=== PATIENT | male | born 1960 | race Caucasian/White ===

== ENCOUNTER 2023-12-29 11:50 | Emergency (ER) | payer MEDICAID ==
[~2023-12-29] VITALS: Ht 182.9 cm; Wt 88.9 kg
[2023-12-29] MEDS ORDERED: LIDOCAINE MPF 1%-EPI 1:200,000 30 ML VIAL IJ ONE (12:11)
[2023-12-29 13:20] LABS: ALBUMIN 3.7 g/dL (3.4-5.0); BILIRUBIN,TOTAL 0.4 mg/dL (0.2-1.0); CALCIUM, SERUM 9.2 mg/dL (8.5-10.1); POTASSIUM 5.3 mmol/L (3.5-5.1); TOTAL PROTEIN, SERUM 7.6 g/dL (6.4-8.2)
[2023-12-29 13:34] LABS: BASOPHILS % (AUTO) 0.4 % (0.0-2.0); EOSINOPHILS # (AUTO) 0.2 K/uL (0.0-0.7); EOSINOPHILS % (AUTO) 2.4 % (0.0-6.0); HEMATOCRIT 41 % (39-51); HEMOGLOBIN 13.8 g/dL (13.5-17.5); LYMPHOCYTES # (AUTO) 1.5 K/uL (0.8-4.8); LYMPHOCYTES % (AUTO) 14.7 % (20.0-44.0); MEAN CORPUSCULAR HEMOGLOBIN 30 PG (26.0-33.0); MEAN CORPUSCULAR HGB CONC 33 g/dl (31.0-36.0); MEAN CORPUSCULAR VOLUME 91 fL (80-96); MONOCYTES # (AUTO) 0.5 K/uL (0.1-1.30); MONOCYTES % (AUTO) 5.4 % (2.0-12.0); NEUTROPHILS # (AUTO) 7.8 K/uL (1.8-8.9); NEUTROPHILS % (AUTO) 77.1 % (43.0-81.0); PLATELET COUNT (AUTO) 229 K/uL (150-450); RED BLOOD CELL COUNT(AUTO) 4.52 MIL/uL (4.5-6.0); RED CELL DISTRIBUTION WIDTH 13.8 % (11.5-15.0); WHITE BLOOD COUNT (AUTO) 10.1 K/uL (4.3-11.0)
[2023-12-29] MEDS: IV NS 0.9% 1,000 ML BAG IV ONE (14:00)
[2023-12-29] MEDS ORDERED: TDAP [DIPH/PERTUSSIS/TET] 0.5 ML VIAL IM ONE (14:06)
[2023-12-29] MEDS: TDAP [DIPH/PERTUSSIS/TET] 0.5 ML VIAL IM ONE (14:13)
[2023-12-29] MEDS: LEVETIRACETAM (500MG) 500 MG in IV NS 0.9% 100 ML IV SCH (14:35)
[2023-12-29 17:07] VITALS: BP 125/88; TEMP 98.3; O2SAT 98
== END 2023-12-29 17:00 ==
LOC: ER 11:52
DX: S09.8XXA Other specified injuries of head, initial encounter (principal); S01.81XA Laceration without foreign body of other part of head, initial encounter; G40.909 Epilepsy, unspecified, not intractable, without status epilepticus; G62.9 Polyneuropathy, unspecified; I10 Essential (primary) hypertension; M19.90 Unspecified osteoarthritis, unspecified site; M81.0 Age-related osteoporosis without current pathological fracture; F20.9 Schizophrenia, unspecified; F32.A Depression, unspecified; E78.5 Hyperlipidemia, unspecified; H40.9 Unspecified glaucoma; Z86.79 Personal history of other diseases of the circulatory system; Z87.19 Personal history of other diseases of the digestive system; Z87.438 Personal history of other diseases of male genital organs; W18.39XA Other fall on same level, initial encounter; Y93.89 Activity, other specified; Y92.89 Other specified places as the place of occurrence of the external cause; Y99.8 Other external cause status
CPT/HCPCS: 12013; 36415; 70450; 72125; 80053; 84484; 85025; 90471; 90715; 93005; 96361; 96365; 99285; A4223; A6403; J1953; J3490; J7030

== ENCOUNTER 2024-11-13 13:48 | Inpatient (IN) | payer MEDICARE, OTHER ==
[~2024-11-13] VITALS: Ht 182.9 cm; Wt 87.5 kg
[2024-11-13 14:22] LABS: PLATELET COUNT (AUTO) 242 K/uL (150-450); RED BLOOD CELL COUNT(AUTO) 4.29 MIL/uL (4.5-6.0); RED CELL DISTRIBUTION WIDTH 16.4 % (11.5-15.0); WHITE BLOOD COUNT (AUTO) 7.3 K/uL (4.3-11.0)
[2024-11-13 14:35] LABS: CALCIUM, SERUM 9.2 mg/dL (8.5-10.1); CREATININE 1.0 mg/dL (0.6-1.3); SODIUM SERUM 140.0 mmol/L (136-145); UREA NITROGEN, BLOOD 23.0 mg/dL (7-18)
[2024-11-13 14:40] LABS: ASPARTATE AMINOTRANSFERASE 18.0 U/L (15-37); TOTAL PROTEIN, SERUM 7.1 g/dL (6.4-8.2)
[2024-11-13] MEDS ORDERED: ACETAMINOPHEN ES 500 MG TABLET ONE (15:05)
[2024-11-13] MEDS: ACETAMINOPHEN 325 MG TABLET PO ONE (15:10)
[2024-11-13 18:38] LABS: APPEARANCE,URINE SLIGHTLY CLOUDY (CLEAR); BLOOD, URINE NEGATIVE Ery/uL (NEGATIVE); LEUKOCYTE ESTERASE ,URINE 1+ (NEGATIVE); NITRITE, URINE POSITIVE (NEGATIVE); UGLUCOSE NEGATIVE (NEGATIVE)
[2024-11-13 18:53] LABS: ADD URINE CULTURE YES; SQUAMOUS EPITHELIAL CELL,UR Few /HPF (None Seen)
[2024-11-13] MEDS ORDERED: CEFTRIAXONE 1GM BAG (ER ONLY) 50 ML IV ONE (19:00)
[2024-11-13] MEDS ORDERED: LEVOFLOXACIN (250MG) 250 MG TABLET ONE (19:29)
[2024-11-13] MEDS: LEVOFLOXACIN (250MG) 250 MG TABLET PO ONE (19:35)
[2024-11-13] MEDS ORDERED: SIMV10TA98 PO (20:48)
[2024-11-13] MEDS ORDERED: GABA600T12 PO (20:48)
[2024-11-13] MEDS ORDERED: TRAZ-182 PO (20:48)
[2024-11-13] MEDS ORDERED: METF-440 PO (20:48)
[2024-11-13] MEDS ORDERED: PROP40TA7 PO (20:48)
[2024-11-13] MEDS ORDERED: LIDO1ADH82 TP (20:48)
[2024-11-13] MEDS ORDERED: POLY119P3 PO (20:48)
[2024-11-13] MEDS ORDERED: LEVE250T2 PO (20:48)
[2024-11-13] MEDS ORDERED: TIMO5DRO35 LEFTEYE (20:48)
[2024-11-13] MEDS ORDERED: LATA7.5D EACHEYE (20:48)
[2024-11-13] MEDS ORDERED: TIZA-180 PO (20:48)
[2024-11-13] MEDS ORDERED: SENN8.6T19 PO (20:48)
[2024-11-13] MEDS ORDERED: OLAN5TAB3 PO (20:48)
[2024-11-13] MEDS ORDERED: MAG HYDROX/AL HYDROX/SIMETH 30 ML UDC PO PRN (21:00)
[2024-11-13] MEDS ORDERED: Z GUARD REMEDY 4 OZ OINT TP PRN (21:00)
[2024-11-13] MEDS ORDERED: ONDANSETRON HCL/PF 4 MG/2 ML VIAL IVP PRN (21:00)
[2024-11-13] MEDS ORDERED: MAGNESIUM HYDROXIDE 30 ML UDC PO PRN (21:00)
[2024-11-13] MEDS: IV NS 0.9% 1,000 ML IV SCH (21:30)
[2024-11-13] MEDS: ENOXAPARIN SODIUM 40 MG/0.4 ML DISP.SYRIN SQ SCH (21:35)
[2024-11-13] MEDS: ACETAMINOPHEN 325 MG TABLET PO PRN (21:50)
[2024-11-13 22:00] VITALS: BP 139/104; TEMP 97.9; O2SAT 95
[2024-11-14 01:07] VITALS: BP 139/104; TEMP 97.9; O2SAT 95
[2024-11-14 07:30] VITALS: BP 117/91; TEMP 98.1; O2SAT 96
[2024-11-14 08:00] LABS: PLATELET COUNT (AUTO) 233 K/uL (150-450); RED BLOOD CELL COUNT(AUTO) 4.39 MIL/uL (4.5-6.0); RED CELL DISTRIBUTION WIDTH 16.7 % (11.5-15.0); WHITE BLOOD COUNT (AUTO) 7.4 K/uL (4.3-11.0)
[2024-11-14] MEDS: LIDOCAINE 5% (PATCH) 1 EA PATCH TP SCH (08:16)
[2024-11-14] MEDS: GABAPENTIN 300 MG CAPSULE PO SCH (08:18)
[2024-11-14] MEDS: SENNOSIDES 8.6 MG TABLET PO SCH (08:18)
[2024-11-14] MEDS: LEVETIRACETAM SOL (5 ML) 100 MG/ML UDC PO SCH (08:18)
[2024-11-14] MEDS: OLANZAPINE 5 MG TABLET PO SCH (08:19)
[2024-11-14] MEDS: METFORMIN 500 MG TABLET PO SCH (08:19)
[2024-11-14] MEDS: TIZANIDINE HCL 4 MG TABLET PO SCH (08:19)
[2024-11-14] MEDS: PROPRANOLOL HCL 40 MG TABLET PO SCH (08:19)
[2024-11-14] MEDS: PANTOPRAZOLE 40 MG TABLET.DR PO SCH (08:19)
[2024-11-14] MEDS: TIMOLOL 0.5% SOLN OPHTH 5 ML BOTTLE EACHEYE SCH (08:24)
[2024-11-14 09:22] LABS: CALCIUM, SERUM 8.9 mg/dL (8.5-10.1); CREATININE 0.9 mg/dL (0.6-1.3); PHOSPHORUS 2.9 mg/dL (2.5-4.9); SODIUM SERUM 142.0 mmol/L (136-145); UREA NITROGEN, BLOOD 19.0 mg/dL (7-18)
[2024-11-14] MEDS ORDERED: PIPERACILLIN /TAZOBACTAM 3.375 G in IV D5W 50 ML IV SCH (12:00)
[2024-11-14] MEDS: NITROFURANTOIN/MONOHYDRATE MACROCRYSTALS 100 MG CAPSULE PO SCH (13:17)
[2024-11-14] MEDS: IV NS 0.9% 1,000 ML IV PRN (13:47)
[2024-11-14 16:00] VITALS: BP 135/98; TEMP 98.4; O2SAT 96
[2024-11-14] MEDS: LATANOPROST EYE DROP 0.005% 2.5 ML BOTTLE EACHEYE SCH (17:30)
[2024-11-14] MEDS: SIMVASTATIN 10 MG TABLET PO SCH (17:39)
[2024-11-14] MEDS: TRAZODONE 50 MG TABLET PO SCH (17:39)
[2024-11-14 20:00] VITALS: BP 136/92; TEMP 98.6; O2SAT 92
[2024-11-15 06:45] LABS: PLATELET COUNT (AUTO) 241 K/uL (150-450); RED BLOOD CELL COUNT(AUTO) 4.52 MIL/uL (4.5-6.0); RED CELL DISTRIBUTION WIDTH 16.6 % (11.5-15.0); WHITE BLOOD COUNT (AUTO) 7.3 K/uL (4.3-11.0)
[2024-11-15 07:14] LABS: CALCIUM, SERUM 8.9 mg/dL (8.5-10.1); CREATININE 0.9 mg/dL (0.6-1.3); SODIUM SERUM 140.0 mmol/L (136-145); TOTAL PROTEIN, SERUM 7.5 g/dL (6.4-8.2); UREA NITROGEN, BLOOD 23.0 mg/dL (7-18)
[2024-11-15 07:27] LABS: ASPARTATE AMINOTRANSFERASE 19.0 U/L (15-37); PHOSPHORUS 2.4 mg/dL (2.5-4.9)
[2024-11-15 07:30] VITALS: BP 160/99; TEMP 98.4; O2SAT 97
[2024-11-15] MEDS ORDERED: NITROFURANTOIN/MONOHYDRATE MACROCRYSTALS 100 MG CAPSULE PO SCH (09:00)
[2024-11-15 16:00] VITALS: BP 127/84; TEMP 97.9; O2SAT 95
[2024-11-15] MEDS: K PHOS NEUTRAL 250 MG TABLET PO ONE (16:35)
[2024-11-15] MEDS: HYDROCODONE/APAP 5/325MG TABLET PO PRN (16:35)
[2024-11-15 20:00] VITALS: BP 108/71; TEMP 97.5; O2SAT 94
[2024-11-16 07:19] LABS: PLATELET COUNT (AUTO) 206 K/uL (150-450); RED BLOOD CELL COUNT(AUTO) 4.04 MIL/uL (4.5-6.0); RED CELL DISTRIBUTION WIDTH 16.3 % (11.5-15.0); WHITE BLOOD COUNT (AUTO) 7.3 K/uL (4.3-11.0)
[2024-11-16 07:35] LABS: ASPARTATE AMINOTRANSFERASE 17.0 U/L (15-37); CALCIUM, SERUM 8.1 mg/dL (8.5-10.1); CREATININE 0.9 mg/dL (0.6-1.3); PHOSPHORUS 2.9 mg/dL (2.5-4.9); SODIUM SERUM 142.0 mmol/L (136-145); TOTAL PROTEIN, SERUM 6.7 g/dL (6.4-8.2); UREA NITROGEN, BLOOD 19.0 mg/dL (7-18)
[2024-11-16 08:00] VITALS: BP 134/82; TEMP 98.4; O2SAT 96
[2024-11-16 08:56] VITALS: BP 134/82
[2024-11-16] MEDS: POTASSIUM CHLORIDE 20 MEQ TAB.PRT.SR PO SCH (12:04)
== END 2024-11-16 14:50 | DRG 699 ==
LOC: ER 13:56 → MED 20:37
PROVIDERS: ADMIT Registered Nurse Psychiatric/Mental Health
DX: T83.511A Infection and inflammatory reaction due to indwelling urethral catheter, initial encounter (principal); Z16.12 Extended spectrum beta lactamase (ESBL) resistance; N39.0 Urinary tract infection, site not specified; G40.909 Epilepsy, unspecified, not intractable, without status epilepticus; E86.0 Dehydration; D64.9 Anemia, unspecified; E78.5 Hyperlipidemia, unspecified; F20.9 Schizophrenia, unspecified; N31.9 Neuromuscular dysfunction of bladder, unspecified; Z79.84 Long term (current) use of oral hypoglycemic drugs; R26.89 Other abnormalities of gait and mobility; F32.9 Major depressive disorder, single episode, unspecified; S81.802A Unspecified open wound, left lower leg, initial encounter; S81.801A Unspecified open wound, right lower leg, initial encounter; X58.XXXA Exposure to other specified factors, initial encounter; Y93.9 Activity, unspecified; Y92.129 Unspecified place in nursing home as the place of occurrence of the external cause; R33.9 Retention of urine, unspecified; I11.9 Hypertensive heart disease without heart failure; B96.20 Unspecified Escherichia coli [E. coli] as the cause of diseases classified elsewhere; M81.0 Age-related osteoporosis without current pathological fracture; Y73.8 Miscellaneous gastroenterology and urology devices associated with adverse incidents, not elsewhere classified; Y84.6 Urinary catheterization as the cause of abnormal reaction of the patient, or of later complication, without mention of misadventure at the time of the procedure
CPT/HCPCS: 36415; 80048-TC; 80053-TC; 80076-TC; 81001; 83690-TC; 83735-TC; 84100-TC; 84443-TC; 85025-TC; 87081-TC; 87086-TC; 87186-TC; A4223; G0378; J1650; J1953; J7030